=== PATIENT | female | born 1960 | race American Indian/Alaskan Native ===

== ENCOUNTER 2018-09-15 13:39 | Emergency (ER) | payer SELFPAY ==
--- NOTE | 2018-09-15 13:46 | Emergency Department Report ---
Blank Doc - Documentation Documentation: This is a 58-year-old female that presents with uncontrolled hyperglycemia. This initial assessment/diagnostic orders/clinical plan/treatment(s) is/are subject to change based on patient's health status, clinical progression and re- assessment by fellow clinical providers in the ED. Further treatment and workup at subsequent clinical providers discretion. Patient/guardians urged not to elope from the ED as their condition may be serious if not clinically assessed and managed. Initial orders include: 1- Patient sent to main ed for further evaluation and treatment 2- labs 3- UA
[2018-09-15 14:24] LABS: Basophils # (Auto) 0.1 K/mm3 (0.0-0.1); Basophils % (Auto) 1.2 % (0.0-1.8); Eosinophils % (Auto) 0.2 % (0.0-4.3); Hematocrit 38.9 % (30.3-42.9); Hemoglobin 12.8 gm/dl (10.1-14.3); Lymphocytes # (Auto) 1.4 K/mm3 (1.2-5.4); Lymphocytes % (Auto) 29.6 % (13.4-35.0); Mean Corpuscular HGB Conc 33 % (30-34); Mean Corpuscular Volume 85 fl (79-97); Monocytes # (Auto) 0.3 K/mm3 (0.0-0.8); Monocytes % (Auto) 7.1 % (0.0-7.3); Platelet Count 256 K/mm3 (140-440); Red Cell Distribution Width 13.1 % (13.2-15.2)
[2018-09-15 14:43] LABS: Calcium 8.7 mg/dL (8.4-10.2)
[2018-09-15] MEDS ORDERED: HumuLIN R IV ONE ×2 (16:23→18:22)
[2018-09-15] MEDS ORDERED: NACL 0.9% 1000 ML 1,000 ML IV ONE ×2 (16:23→18:21)
--- NOTE | 2018-09-15 17:23 | Emergency Department Report ---
ED General Adult HPI - General Chief complaint: Hyperglycemia Stated complaint: HIGH SUGAR LEVEL Time Seen by Provider: 09/15/18 13:45 Source: patient Mode of arrival: Ambulatory Limitations: No Limitations - History of Present Illness Initial comments: Disposition of a history of diabetes presents to ED with elevated glucose. Patient states her sister checked her glucose yesterday and it was elevated. Patient reports she has not been on any medication in one year because she does not have a physician currently. -: days(s) (1) Improves with: none Worsens with: none Associated Symptoms: denies: chest pain, fever/chills, nausea/vomiting, shortness of breath - Related Data Previous Rx's Medication Instructions Recorded Last Taken Type metFORMIN [Glucophage] 500 mg PO BID #60 tablet 09/15/18 Unknown Rx Allergies Allergy/AdvReac Type Severity Reaction Status Date / Time No Known Allergies Allergy Unverified 09/15/18 13:41 ED Review of Systems ROS: Stated complaint: HIGH SUGAR LEVEL Other details as noted in HPI Comment: All other systems reviewed and negative Constitutional: denies: chills, fever Respiratory: denies: cough, shortness of breath Cardiovascular: denies: chest pain Gastrointestinal: denies: abdominal pain, nausea, vomiting ED Past Medical Hx - Past Medical History Hx Diabetes: Yes - Social History Smoking Status: Never Smoker Substance Use Type: None - Medications Home Medications: Home Medications Medication Instructions Recorded Confirmed Last Taken Type metFORMIN [Glucophage] 500 mg PO BID #60 tablet 09/15/18 Unknown Rx ED Physical Exam - General Limitations: No Limitations General appearance: alert, in no apparent distress - Head Head exam: Present: atraumatic, normocephalic - Eye Eye exam: Present: normal appearance, PERRL, EOMI - ENT ENT exam: Present: mucous membranes moist - Neck Neck exam: Present: normal inspection - Respiratory Respiratory exam: Present: normal lung sounds bilaterally. Absent: respiratory distress - Cardiovascular Cardiovascular Exam: Present: normal rhythm, tachycardia - GI/Abdominal GI/Abdominal exam: Present: soft. Absent: distended, tenderness - Extremities Exam Extremities exam: Present: normal inspection - Neurological Exam Neurological exam: Present: alert, oriented X3 - Psychiatric Psychiatric exam: Present: normal affect, normal mood - Skin Skin exam: Present: warm, dry, intact, normal color ED Course Vital Signs 09/15/18 09/15/18 09/15/18 13:46 17:50 20:57 Temperature 98.3 F 98.2 F Pulse Rate 105 H 94 H 89 Respiratory 18 16 16 Rate Blood Pressure 145/85 Blood Pressure 133/84 123/70 [Left] O2 Sat by Pulse 98 98 99 Oximetry ED Medical Decision Making - Lab Data Result diagrams: 09/15/18 14:03 09/15/18 14:03 - Medical Decision Making 58-year-old female with a history of diabetes presents to ED with hyperglycemia. Glucose of 602, however patient not DKA. Potassium was mildly elevated at 5.3. Patient was given a total of 12 units of insulin for correction of potassium and glucose. IV fluids given as well. Repeat glucose 273. Patient reports she was previously on insulin, however, that was more than one year ago. Will place patient on metformin twice a day at this time. Outpatient follow- up advised. Return precautions given. - Differential Diagnosis hyperglycemia, DKA Critical care attestation.: If time is entered above; I have spent that time in minutes in the direct care of this critically ill patient, excluding procedure time. ED Disposition Clinical Impression: Hyperglycemia due to type 2 diabetes mellitus Disposition: - TO HOME OR SELFCARE Is pt being admited?: No Condition: Stable Instructions: Diabetes Mellitus Type 2 in Adults (ED) Prescriptions: metFORMIN [Glucophage] 500 mg PO BID #60 tablet Referrals: TC HYDE MD [Primary Care Provider] - 3-5 Days [facility] [Outside] - 3-5 Days Time of Disposition: :19
[2018-09-15 20:21] LABS: Bilirubin,Urine NEG (Negative); Blood,Urine NEG (Negative); Color,Urine Colorless (Yellow); Mucus,Urine FEW /HPF; Protein,Urine <15 mg/dL mg/dL (Negative); RBC,Urine < 1.0 /HPF (0.0-6.0); Urobilinogen,Urine < 2.0 mg/dL (<2.0)
[2018-09-15 20:57] VITALS: BP 123/70
== END 2018-09-15 20:57 | disposition home or self-care (01) ==
LOC: ED 13:39
DX: E11.65 Type 2 diabetes mellitus with hyperglycemia (principal)
CPT/HCPCS: 36415; 80048; 81001; 82805; 82962; 85025; 96361; 96374; 96376; 99283; J7030; J1815

== ENCOUNTER 2019-12-02 12:08 | Emergency (ER) | payer SELFPAY ==
[2019-12-02 13:03] VITALS: BP 172/89
[2019-12-02 14:43] LABS: BUN/Creatinine Ratio 15; Blood Urea Nitrogen 17 mg/dL (7-17); Calcium 9.6 mg/dL (8.4-10.2); Hemolysis Index 3
[2019-12-02 15:39] LABS: Basophils % (Auto) 0.3 % (0.0-1.8); Eosinophils % (Auto) 0.4 % (0.0-4.3); Hematocrit 38.7 % (30.3-42.9); Hemoglobin 12.5 gm/dl (10.1-14.3); Lymphocytes # (Auto) 1.5 K/mm3 (1.2-5.4); Lymphocytes % (Auto) 24.6 % (13.4-35.0); Mean Corpuscular HGB Conc 32 % (30-34); Mean Corpuscular Volume 84 fl (79-97); Monocytes # (Auto) 0.4 K/mm3 (0.0-0.8); Monocytes % (Auto) 6.2 % (0.0-7.3); Platelet Count 228 K/mm3 (140-440); Red Blood Count 4.59 M/mm3 (3.65-5.03); Red Cell Distribution Width 12.9 % (13.2-15.2)
[2019-12-02] MEDS ORDERED: INSULIN REGULAR, HUMAN 100 UNIT/ML 3ML VIAL IV ONE (16:27)
[2019-12-02] MEDS ORDERED: SODIUM CHLORIDE 0.9% 1000 ML 1,000 ML IV ONE (16:27)
--- NOTE | 2019-12-02 16:27 | Emergency Department Report ---
ED General Adult HPI - General Chief complaint: Hyperglycemia Stated complaint: hyperglycemia PUI?: No Time Seen by Provider: 12/02/19 16:15 Source: patient Mode of arrival: Ambulatory Limitations: No Limitations - History of Present Illness Initial comments: Patient is a 59-year-old female that presents emergency with complaints of hyperglycemia. Patient states that she ran out of medications for her diabetes and blood pressure 7 months ago. Patient states her primary care's office closed due to COVID-19. Patient states that her sugar and blood pressure have been going up steadily today. Patient states that she is having frequent urination and thirst. Patient denies chest pain or shortness of breath. Patient denies any physical pain. Patient denies any physical complaints except for frequent urination and thirst. Patient denies diaphoresis. Patient denies syncopal episode. Patient denies headache. Patient denies blurry vision. Patient denies recent travel. Patient denies recent international travel. Patient denies exposure to the novel coronavirus. Patient denies sick contacts. Patient denies fever and chills. Patient denies cough. Patient denies diarrhea. Patient denies coming in contact with anybody with symptoms of the novel coronavirus. -: Sudden Consistency: constant Improves with: medication, rest Worsens with: eating Associated Symptoms: denies other symptoms. denies: confusion, chest pain, cough, diaphoresis, fever/chills, headaches, loss of appetite, malaise, nausea/vomiting, rash, seizure, shortness of breath, syncope, weakness Treatments Prior to Arrival: none - Related Data Previous Rx's Medication Instructions Recorded Last Taken Type Amlodipine Besylate [Norvasc] 5 mg PO DAILY #30 tablet 12/02/19 Unknown Rx metFORMIN [Glucophage] 500 mg PO BID 15 Days #30 tablet 12/02/19 Unknown Rx Allergies Allergy/AdvReac Type Severity Reaction Status Date / Time No Known Allergies Allergy Unverified 09/15/18 13:41 ED Review of Systems ROS: Stated complaint: PAIN Other details as noted in HPI Constitutional: denies: chills, fever Eyes: denies: eye pain, eye discharge, vision change ENT: denies: ear pain, throat pain Respiratory: denies: cough, shortness of breath, wheezing Cardiovascular: denies: chest pain, palpitations Endocrine: no symptoms reported, increased thirst, increased urine Gastrointestinal: denies: abdominal pain, nausea, diarrhea Genitourinary: denies: urgency, dysuria, discharge Musculoskeletal: denies: back pain, joint swelling, arthralgia Skin: denies: rash, lesions Neurological: denies: headache, weakness, paresthesias Psychiatric: denies: anxiety, depression Hematological/Lymphatic: denies: easy bleeding, easy bruising ED Past Medical Hx - Past Medical History Previous Medical History?: Yes Hx Hypertension: Yes Hx Diabetes: Yes - Surgical History Past Surgical History?: No - Family History Family history: no significant - Social History Smoking Status: Never Smoker Substance Use Type: None - Medications Home Medications: Home Medications Medication Instructions Recorded Confirmed Last Taken Type Amlodipine Besylate [Norvasc] 5 mg PO DAILY #30 tablet 12/02/19 Unknown Rx metFORMIN [Glucophage] 500 mg PO BID 15 Days #30 tablet 12/02/19 Unknown Rx ED Physical Exam - General Limitations: No Limitations General appearance: alert, in no apparent distress - Head Head exam: Present: atraumatic, normocephalic - Eye Eye exam: Present: normal appearance, PERRL Pupils: Present: normal accommodation - ENT ENT exam: Present: mucous membranes dry - Neck Neck exam: Present: normal inspection - Respiratory Respiratory exam: Present: normal lung sounds bilaterally. Absent: respiratory distress, wheezes, rales - Cardiovascular Cardiovascular Exam: Present: regular rate, normal rhythm. Absent: systolic murmur, diastolic murmur, rubs, gallop - GI/Abdominal GI/Abdominal exam: Present: soft, normal bowel sounds. Absent: distended, tenderness, guarding - Rectal Rectal exam: Present: deferred - Extremities Exam Extremities exam: Present: normal inspection - Back Exam Back exam: Present: normal inspection - Neurological Exam Neurological exam: Present: alert, oriented X3 - Psychiatric Psychiatric exam: Present: normal affect, normal mood - Skin Skin exam: Present: warm, dry, intact, normal color. Absent: rash ED Course Vital Signs 12/02/19 13:01 Temperature 98.0 F Pulse Rate 111 H Respiratory 20 Rate Blood Pressure 172/89 [Left] O2 Sat by Pulse 98 Oximetry - Reevaluation(s) Reevaluation #1: Initial evaluation done. Patient is unknown sure of her medication that she is on except for Metformin. Patient will be given saline, insulin. An IV will placed by the nurse. 12/02/19 16:28 Reevaluation #2: Patient states she is feeling better. Patient's blood pressure just prior to discharge 160/80. Patient's heart rate is 86. I discussed all results and clinical findings with patient. I discussed plan of care with patient. Patient agrees with plan of care. Patient is stable for discharge. Patient will be discharged home. Patient given discharge instructions. Patient voiced understanding of discharge instructions. 12/02/19 17:59 ED Medical Decision Making - Lab Data Result diagrams: 12/02/19 14:10 12/02/19 14:10 - Medical Decision Making Patient is a 59-year-old female that presents emergency room with complaints of hyperglycemia and hypertension. Patient states she was out of her medications 6+ months. Patient had labs done. Patient had no other physical complaints except for the elevated sugar. Patient's labs are consistent with dehydration, hyperglycemia and hyperkalemia. Patient CBC was normal. Patient given fluids, insulin. Patient's sugar responded well. Patient states she felt better after treatment. Patient stable for discharge. Patient discharged home. Patient given refill of her medications. Patient given a refill of her Metformin and described Norvasc for her blood pressure. - Differential Diagnosis hyperglycemia, noncompliance, diabetes, hypertension Critical care attestation.: If time is entered above; I have spent that time in minutes in the direct care of this critically ill patient, excluding procedure time. ED Disposition Clinical Impression: Hyperglycemia, Noncompliance, Dehydration, Hyperkalemia Diabetes type 2, uncontrolled Qualifiers: Glycemic state: with hyperglycemia Qualified Code(s): E11.65 - Type 2 diabetes mellitus with hyperglycemia Hypertension Qualifiers: Hypertension type: essential hypertension Qualified Code(s): I10 - Essential (primary) hypertension Disposition: DC-01 TO HOME OR SELFCARE Is pt being admited?: No Does the pt Need Aspirin: No Condition: Stable Instructions: Heart Healthy Diet (ED), How to Take a Blood Pressure (ED), How to Check Your Blood Sugar (ED), Diabetes Mellitus Type 2 in Adults (ED), DASH Eating Plan (ED), Low Sodium Diet (ED), Hypertension (ED) Additional Instructions: Patient to follow-up with primary care in 2 to 3 days. Patient to follow-up with endocrine in 2 to 3 days. Patient to rest. Patient to increase water. Patient to eat a diabetic diet. Patient to take all meds as directed. Patient to monitor blood sugar. Patient to monitor blood pressure. Patient to keep a blood sugar and a blood pressure log. Patient to take blood sugar and blood pressure log to follow-up appointments. Patient to eat a heart healthy and low- salt diet. Patient to take meds as directed. Patient to return to the ER if condition worsens, changes or new symptoms arise.. Prescriptions: metFORMIN [Glucophage] 500 mg PO BID 15 Days #30 tablet Amlodipine Besylate [Norvasc] 5 mg PO DAILY #30 tablet Referrals: PRIMARY CARE, [Primary Care Provider] - 2-3 Days Time of Disposition: 17:50
[2019-12-02] MEDS ORDERED: INSULIN REGULAR, HUMAN 100 UNITS/1 ML ONE (17:00)
== END 2019-12-02 18:31 | disposition home or self-care (01) ==
LOC: ED 12:08
DX: E11.65 Type 2 diabetes mellitus with hyperglycemia (principal); I10 Essential (primary) hypertension; E86.0 Dehydration; E87.5 Hyperkalemia
CPT/HCPCS: 36415; 80048; 82962; 85025; 96361; 96374; 99283; J7030; J1815

== ENCOUNTER 2020-04-23 14:07 | Emergency (ER) | payer SELFPAY ==
[2020-04-23] MEDS ORDERED: SODIUM CHLORIDE 0.9% 1000 ML 1,000 ML IV ONE ×2 (15:18→17:18)
--- NOTE | 2020-04-23 15:23 | XRay Report ---
CHEST 1 VIEW 04/23/2020 2:15 PM INDICATION / CLINICAL INFORMATION: Chest pain. COMPARISON: None available. FINDINGS: SUPPORT DEVICES: None. HEART / MEDIASTINUM: No significant abnormality. LUNGS / PLEURA: Clear lungs. No significant pleural effusion. No pneumothorax. ADDITIONAL FINDINGS: No significant additional findings. IMPRESSION: 1. No acute abnormality of the chest. Signer Name: Elvin Briones MD Signed: 04/23/2020 3:18 PM Workstation Name: [id number]
--- NOTE | 2020-04-23 15:36 | Emergency Department Report ---
HPI - General Chief Complaint: Hyperglycemia Time Seen by Provider: 04/23/20 14:48 - HPI HPI: This is a 60-year-old [place] female who presents to the emergency department, sent in by a physician at the [facility], secondary to elevated blood pressure and blood sugar. The patient does not have a normal primary care physician for which she follows up on a yearly basis. The patient does have a history of [id number]-[id number] diabetes for which she was previously on Metformin 500 mg twice daily. She admits to medication noncompliance since February. She went into the clinic today and was found to have a blood sugar above 500 and was given 1000 mg of Metformin. They rechecked her blood sugar about 1.5 hours later and the patient was still hyperglycemic. The triage note says that the patient had been complaining of chest pain for the past 2 weeks. When I asked her about this she says that it resolved and "I just said that so I would be tended to." She denies any fever, headache, shortness of breath, nausea, vomiting. ED Past Medical Hx - Past Medical History Hx Hypertension: Yes Hx Diabetes: Yes - Social History Smoking Status: Never Smoker Substance Use Type: None - Medications Home Medications: Home Medications Medication Instructions Recorded Confirmed Last Taken Type Amlodipine Besylate [Norvasc] 5 mg PO DAILY #30 tablet 04/23/20 Unknown Rx metFORMIN [Glucophage] 500 mg PO BID #60 tablet 04/23/20 Unknown Rx ED Review of Systems ROS: Stated complaint: SENT BY DR LUQUE/BS ELEVATED Other details as noted in HPI Comment: All other systems reviewed and negative Constitutional: denies: chills, fever Eyes: denies: eye pain, vision change ENT: denies: ear pain, throat pain Respiratory: denies: cough, shortness of breath Cardiovascular: denies: palpitations, edema Gastrointestinal: denies: nausea, vomiting Genitourinary: denies: dysuria, discharge Musculoskeletal: denies: back pain, arthralgia Skin: denies: rash, lesions Neurological: denies: headache, weakness Physical Exam - Physical Exam Vital Signs: Vital Signs 04/23/20 04/23/20 14:19 14:23 Temperature 98 F Pulse Rate 118 H Respiratory 20 Rate Blood Pressure 201/105 O2 Sat by Pulse 98 Oximetry Physical Exam: GENERAL: The patient is well-developed well-nourished. HENT: Normocephalic. Atraumatic. Patient has moist mucous membranes. EYES: Extraocular motions are intact. NECK: Supple. Trachea is midline. CHEST/LUNGS: Clear to auscultation. There is no respiratory distress noted. HEART/CARDIOVASCULAR: Regular. There is mild tachycardia. There is no murmur. ABDOMEN: Abdomen is soft, nontender. Patient has normal bowel sounds. There is no abdominal distention. SKIN: Skin is warm and dry. NEURO: The patient is awake, alert, and oriented. The patient is cooperative. The patient has no focal neurologic deficits. Normal speech. MUSCULOSKELETAL: There is no tenderness or deformity. There is no limitation range of motion. ED Course Vital Signs 04/23/20 04/23/20 14:19 14:23 Temperature 98 F Pulse Rate 118 H Respiratory 20 Rate Blood Pressure 201/105 O2 Sat by Pulse 98 Oximetry ED Medical Decision Making - Lab Data Result diagrams: 04/23/20 14:56 04/23/20 14:56 Lab Results 04/23/20 04/23/20 04/23/20 Range/Units 14:22 14:56 14:56 WBC 6.3 (4.5-11.0) K/mm3 RBC 4.05 (3.65-5.03) M/mm3 Hgb 11.3 (10.1-14.3) gm/dl Hct 35.0 (30.3-42.9) % MCV 86 (79-97) fl MCH 28 (28-32) pg MCHC 32 (30-34) % RDW 15.0 (13.2-15.2) % Plt Count 369 (140-440) K/mm3 Lymph % (Auto) 12.6 L (13.4-35.0) % Sevier % (Auto) 6.5 (0.0-7.3) % Eos % (Auto) 0.0 (0.0-4.3) % Baso % (Auto) 1.0 (0.0-1.8) % Lymph # (Auto) 0.8 L (1.2-5.4) K/mm3 Sevier # (Auto) 0.4 (0.0-0.8) K/mm3 Eos # (Auto) 0.0 (0.0-0.4) K/mm3 Baso # (Auto) 0.1 (0.0-0.1) K/mm3 Seg Neutrophils % 79.9 H (40.0-70.0) % Seg Neutrophils # 5.1 (1.8-7.7) K/mm3 PT (12.2-14.9) Sec. INR (0.87-1.13) APTT (24.2-36.6) Sec. VBG pH (7.320-7.420) Sodium 129 L (137-145) mmol/L Potassium 4.5 (3.6-5.0) mmol/L Chloride 89.7 L (98-107) mmol/L Carbon Dioxide 23 (22-30) mmol/L Anion Gap 21 mmol/L BUN 19 H (7-17) mg/dL Creatinine 1.1 (0.6-1.2) mg/dL Estimated GFR > 60 ml/min BUN/Creatinine Ratio 17 % Glucose 618 H* (65-100) mg/dL POC Glucose > 600 H (70-105) mg/dL Ketones Quantitative Negative (Negative) Calcium 9.3 (8.4-10.2) mg/dL Total Bilirubin 0.30 (0.1-1.2) mg/dL AST 13 (5-40) units/L ALT 14 (7-56) units/L Alkaline Phosphatase 119 (35-129) units/L Troponin T (0.00-0.029) ng/mL Total Protein 7.8 (6.3-8.2) g/dL Albumin 4.4 (3.9-5) g/dL Albumin/Globulin Ratio 1.3 % Urine Color (Yellow) Urine Turbidity (Clear) Urine pH (5.0-7.0) Ur Specific Claridge (1.003-1.030) Urine Protein (Negative) mg/dL Urine Glucose (UA) (Negative) mg/dL Urine Ketones (Negative) mg/dL Urine Blood (Negative) Urine Nitrite (Negative) Urine Bilirubin (Negative) Urine Urobilinogen (<2.0) mg/dL Ur Leukocyte Esterase (Negative) Urine WBC (Auto) (0.0-6.0) /HPF Urine RBC (Auto) (0.0-6.0) /HPF U Epithel Cells (Auto) (0-13.0) /HPF 04/23/20 04/23/20 04/23/20 Range/Units 14:56 15:25 15:25 WBC (4.5-11.0) K/mm3 RBC (3.65-5.03) M/mm3 Hgb (10.1-14.3) gm/dl Hct (30.3-42.9) % MCV (79-97) fl MCH (28-32) pg MCHC (30-34) % RDW (13.2-15.2) % Plt Count (140-440) K/mm3 Lymph % (Auto) (13.4-35.0) % Sevier % (Auto) (0.0-7.3) % Eos % (Auto) (0.0-4.3) % Baso % (Auto) (0.0-1.8) % Lymph # (Auto) (1.2-5.4) K/mm3 Sevier # (Auto) (0.0-0.8) K/mm3 Eos # (Auto) (0.0-0.4) K/mm3 Baso # (Auto) (0.0-0.1) K/mm3 Seg Neutrophils % (40.0-70.0) % Seg Neutrophils # (1.8-7.7) K/mm3 PT 12.3 (12.2-14.9) Sec. INR 0.93 (0.87-1.13) APTT 25.6 (24.2-36.6) Sec. VBG pH 7.296 L (7.320-7.420) Sodium (137-145) mmol/L Potassium (3.6-5.0) mmol/L Chloride (98-107) mmol/L Carbon Dioxide (22-30) mmol/L Anion Gap mmol/L BUN (7-17) mg/dL Creatinine (0.6-1.2) mg/dL Estimated GFR ml/min BUN/Creatinine Ratio % Glucose (65-100) mg/dL POC Glucose (70-105) mg/dL Ketones Quantitative (Negative) Calcium (8.4-10.2) mg/dL Total Bilirubin (0.1-1.2) mg/dL AST (5-40) units/L ALT (7-56) units/L Alkaline Phosphatase (35-129) units/L Troponin T < 0.010 (0.00-0.029) ng/mL Total Protein (6.3-8.2) g/dL Albumin (3.9-5) g/dL Albumin/Globulin Ratio % Urine Color (Yellow) Urine Turbidity (Clear) Urine pH (5.0-7.0) Ur Specific Claridge (1.003-1.030) Urine Protein (Negative) mg/dL Urine Glucose (UA) (Negative) mg/dL Urine Ketones (Negative) mg/dL Urine Blood (Negative) Urine Nitrite (Negative) Urine Bilirubin (Negative) Urine Urobilinogen (<2.0) mg/dL Ur Leukocyte Esterase (Negative) Urine WBC (Auto) (0.0-6.0) /HPF Urine RBC (Auto) (0.0-6.0) /HPF U Epithel Cells (Auto) (0-13.0) /HPF 04/23/20 04/23/20 04/23/20 Range/Units 17:37 18:24 18:32 WBC (4.5-11.0) K/mm3 RBC (3.65-5.03) M/mm3 Hgb (10.1-14.3) gm/dl Hct (30.3-42.9) % MCV (79-97) fl MCH (28-32) pg MCHC (30-34) % RDW (13.2-15.2) % Plt Count (140-440) K/mm3 Lymph % (Auto) (13.4-35.0) % Sevier % (Auto) (0.0-7.3) % Eos % (Auto) (0.0-4.3) % Baso % (Auto) (0.0-1.8) % Lymph # (Auto) (1.2-5.4) K/mm3 Sevier # (Auto) (0.0-0.8) K/mm3 Eos # (Auto) (0.0-0.4) K/mm3 Baso # (Auto) (0.0-0.1) K/mm3 Seg Neutrophils % (40.0-70.0) % Seg Neutrophils # (1.8-7.7) K/mm3 PT (12.2-14.9) Sec. INR (0.87-1.13) APTT (24.2-36.6) Sec. VBG pH (7.320-7.420) Sodium (137-145) mmol/L Potassium (3.6-5.0) mmol/L Chloride (98-107) mmol/L Carbon Dioxide (22-30) mmol/L Anion Gap mmol/L BUN (7-17) mg/dL Creatinine (0.6-1.2) mg/dL Estimated GFR ml/min BUN/Creatinine Ratio % Glucose (65-100) mg/dL POC Glucose 304 H 241 H (70-105) mg/dL Ketones Quantitative (Negative) Calcium (8.4-10.2) mg/dL Total Bilirubin (0.1-1.2) mg/dL AST (5-40) units/L ALT (7-56) units/L Alkaline Phosphatase (35-129) units/L Troponin T (0.00-0.029) ng/mL Total Protein (6.3-8.2) g/dL Albumin (3.9-5) g/dL Albumin/Globulin Ratio % Urine Color Straw (Yellow) Urine Turbidity Clear (Clear) Urine pH 6.0 (5.0-7.0) Ur Specific Claridge 1.016 (1.003-1.030) Urine Protein 100 mg/dl (Negative) mg/dL Urine Glucose (UA) >=500 (Negative) mg/dL Urine Ketones Tr (Negative) mg/dL Urine Blood Sm (Negative) Urine Nitrite Neg (Negative) Urine Bilirubin Neg (Negative) Urine Urobilinogen < 2.0 (<2.0) mg/dL Ur Leukocyte Esterase Neg (Negative) Urine WBC (Auto) 1.0 (0.0-6.0) /HPF Urine RBC (Auto) 1.0 (0.0-6.0) /HPF U Epithel Cells (Auto) < 1.0 (0-13.0) /HPF - Radiology Data Radiology results: image reviewed interpreted by me: Chest x-ray does not show any acute process. There are no pleural effusions, obvious pneumonia and there is no pneumothorax. No significant cardiomegaly. - Medical Decision Making This patient was sent in from a local clinic secondary to hyperglycemia. The patient admits to medication noncompliance with her Metformin and with her antihypertensive medications. Initially, through triage, the patient had mentioned something about chest pain. However upon my initial examination the patient says that she may have had chest pain in the past but nothing recently and she admits that she said this in order to get back and be seen as soon as possible. Heart and lung sounds are normal to auscultation. Chest x-ray did not show any pneumonia, pleural effusions, pneumothorax, or any acute process. The patient's labs were abnormal with a serum blood sugar of about 600. The patient did have some venous acidosis but there was no elevated anion gap or serum ketones. The patient had some pseudohyponatremia secondary to the hyperglycemia. Patient was given 2 L of IV fluid resuscitation and a dose of IV insulin. Over the next 2 hours or so the patient's blood sugar came down to about 240 on Accu- Chek. The patient was given 1 dose of labetalol for some hypertension and her blood pressure came down to a more reasonable level. The patient was reevaluated multiple times over multiple hours and has remained stable throughout her ED course. She will be discharged home with a refill of her Metformin and her amlodipine. We discussed dietary changes such as decreased salt and caffeine intake, as well as staying away from foods that are high in sugar, carbohydrates and starches. We discussed keeping a blood sugar and a blood pressure log. She was given multiple outpatient referrals for primary care. Critical Care Time: No Critical care attestation.: If time is entered above; I have spent that time in minutes in the direct care of this critically ill patient, excluding procedure time. ED Disposition Clinical Impression: Noncompliance with medication regimen Uncontrolled diabetes mellitus Qualifiers: Diabetes mellitus type: type 2 Glycemic state: with hyperglycemia Qualified Code(s): E11.65 - Type 2 diabetes mellitus with hyperglycemia Hypertension Qualifiers: Hypertension type: essential hypertension Qualified Code(s): I10 - Essential (primary) hypertension Disposition: DC-01 TO HOME OR SELFCARE Is pt being admited?: No Condition: Stable Instructions: Hyperglycemia, Blood Glucose Monitoring, Adult, Hypertension, Adult, Diabetes Mellitus Type 2 in Adults (ED), Hypertension (ED) Additional Instructions: Please follow-up with a primary care physician in the next few days. I am restarting you on your Metformin. Try to stay away from foods that are high in sugar, carbohydrates and starches. Keep a blood sugar log. I am restarting you on Norvasc/amlodipine. Try to stay away from foods that are high in salt and caffeinated products. Keep a blood pressure log. Return to the emergency department with any worsening of your symptoms, new or concerning symptoms not addressed during this current emergency department visit, or with any acute distress. Prescriptions: metFORMIN [Glucophage] 500 mg PO BID #60 tablet Amlodipine Besylate [Norvasc] 5 mg PO DAILY #30 tablet Referrals: PRIMARY CAREMD [Primary Care Provider] - 3-5 Days DOMINIC PAGE MD [Staff Physician] - 3-5 Days [facility] [Provider Group] - 3-5 Days Time of Disposition: 18:55
[2020-04-23 16:03] LABS: Basophils # (Auto) 0.1 K/mm3 (0.0-0.1); Hemoglobin 11.3 gm/dl (10.1-14.3); Lymphocytes # (Auto) 0.8 K/mm3 (1.2-5.4); Lymphocytes % (Auto) 12.6 % (13.4-35.0); Mean Corpuscular HGB Conc 32 % (30-34); Mean Corpuscular Volume 86 fl (79-97); Monocytes # (Auto) 0.4 K/mm3 (0.0-0.8); Monocytes % (Auto) 6.5 % (0.0-7.3); Platelet Count 369 K/mm3 (140-440); Red Blood Count 4.05 M/mm3 (3.65-5.03)
[2020-04-23 16:08] LABS: Alanine Aminotransferase 14 units/L (7-56); Albumin 4.4 g/dL (3.9-5); BUN/Creatinine Ratio 17; Blood Urea Nitrogen 19 mg/dL (7-17); Calcium 9.3 mg/dL (8.4-10.2); Hemolysis Index 11
[2020-04-23 16:10] LABS: INR 0.93 (0.87-1.13)
[2020-04-23 16:11] LABS: Partial Thromboplastin Time 25.6 Sec. (24.2-36.6)
[2020-04-23] MEDS ORDERED: INSULIN REGULAR, HUMAN 100 UNITS/1 ML IV ONE (16:11)
[2020-04-23 18:42] LABS: Bilirubin,Urine NEG (Negative); Blood,Urine SM (Negative); Color,Urine Straw (Yellow); Urobilinogen,Urine < 2.0 mg/dL (<2.0)
[2020-04-23 19:09] VITALS: BP 135/86
== END 2020-04-23 19:10 | disposition home or self-care (01) ==
LOC: ED 14:07
DX: E11.65 Type 2 diabetes mellitus with hyperglycemia (principal); I10 Essential (primary) hypertension; Z79.899 Other long term (current) drug therapy; Z91.14 Patient's other noncompliance with medication regimen
CPT/HCPCS: 36415; 71045; 80053; 81001; 82010; 82805; 82962; 84484; 85025; 85610; 85730; 93005; 96361; 96374; 96375; 99284; J7030; J1815